=== PATIENT | female | born 1955 | race Caucasian/White ===

== ENCOUNTER → 2018-04-06 | Outpatient (CLI) | payer OTHER ==
--- NOTE | 2018-04-08 13:20 | MAM ---
EXAM DESCRIPTION: 3D Screening BILATERAL : Digital Mammography. CLINICAL HISTORY: 62 years Female ANNUAL SCREENING . No complaints. No personal history or family history of breast cancer. Childbirth. Postmenopausal. No HRT. Lifetime risk of developing breast cancer (Tyrer-Cuzick model)(%): 6.8. COMPARISON: 2-D digital screening bilateral study 05/19/2011.. TECHNIQUE: Bilateral CC and MLO projection full-field images, Digital tomosynthesis mammographic technique. Bilateral digital 2-D full-field MLO images. CAD not utilized. FINDINGS: The breast parenchymal density pattern is: Scattered areas of fibroglandular density. No skin thickening or nipple retraction. Bilateral solitary microcalcifications. Intramammary lymph node posterior upper right breast. No new focal, stellate mass or density, focal asymmetry , and no suspicious microcalcifications bilaterally. Stable mammograms compared to prior study. Taking into account, differences in mammographic technique. IMPRESSION: Benign exam. BIRAD CATEGORY: 2 BENIGN FINDINGS. RECOMMENDATIONS: FOLLOW UP: Routine digital bilateral screening, one year interval from March 2018. Written communication explaining the IMPRESSION and follow-up, will be mailed to the patient and referring health care provider. According to the [employer], yearly mammograms are recommended starting at age 40 and continuing as long as a woman is in good health. Any breast change noted on a breast self-exam should be reported promptly to the patient's healthcare provider. Breast MRI is recommended for women with an approximately 20-25% or greater lifetime risk of breast cancer, including women with a strong family history of breast or ovarian cancer and women who have been treated for Hodgkin's disease. A negative mammographic report should not delay tissue diagnosis in patients with significant clinical history or physical findings. Extremely dense breast tissue limits the sensitivity of digital mammography. Electronically signed by: Armani Billings MD 04/08/2018 1:19 PM CDT
== END ==
LOC: MAMMO 10:45
PROVIDERS: ATTEND Family Medicine
DX: Z12.31 Encounter for screening mammogram for malignant neoplasm of breast (principal)

== ENCOUNTER → 2018-09-02 | Outpatient (CLI) | payer OTHER ==
--- NOTE | 2018-09-04 15:01 | MRI ---
MRI right shoulder without contrast INDICATION: Shoulder pain rotator cuff tear TECHNIQUE: Noncontrast MR imaging right shoulder FINDINGS: Mild hypertrophic AC joint osteoarthrosis. Full-thickness retracted tear supraspinatus retracted to the mid humeral head level. Tendinopathy and low-grade partial tear infraspinatus. Severe subacromial and subdeltoid bursitis Mild diffuse labral degeneration. Mild edema and cystic change greater tuberosity. Grade 1-2 fatty marbling throughout the rotator cuff muscle bellies. Interstitial cyst within the myotendinous region infraspinatus related to interstitial partial tear distally. Tendinopathy and low-grade chronic partial tear subscapularis tendon. Indistinct intracapsular bicep with thinning of the extracapsular portion indicating chronic partial tear. IMPRESSION: Full-thickness retracted tear supraspinatus tendon Interstitial partial tear infraspinatus with interstitial cyst Mild tendinopathy and low-grade chronic partial tear subscapularis tendon Thinning of the long head bicep indicating chronic tendinosis and partial tear Severe subacromial and subdeltoid bursitis Mild AC joint osteoarthrosis. Electronically signed by: Tim Virgen MD 09/04/2018 2:57 PM CDT
== END ==
LOC: MRI 13:08
PROVIDERS: ATTEND Family Medicine
DX: M75.101 Unspecified rotator cuff tear or rupture of right shoulder, not specified as traumatic (principal); M19.011 Primary osteoarthritis, right shoulder; M75.51 Bursitis of right shoulder

== ENCOUNTER → 2018-10-03 | Outpatient (CLI) | payer OTHER | LOC: LAB.O 11:11 | PROVIDERS: ATTEND Orthopaedic Surgery | DX: Z01.818 Encounter for other preprocedural examination (principal) ==

== ENCOUNTER 2018-10-11 05:37 | Day surgery (SDC) | payer OTHER ==
--- NOTE | 2018-10-10 13:09 | HP ---
CHIEF COMPLAINT: Right shoulder pain. HISTORY OF PRESENT ILLNESS: Ms. Borges is a 62-year-old female with a history of pain in the right shoulder that has been present for a couple of months. She had no direct trauma at that time, but states she had done some heavy lifting recently. She has been having worsening stiffness. There has been no radiation and no neurologic symptoms. She has limitations secondary to that because it is her dominant side. She has had an MRI which does show tear of the rotator cuff. Because of the findings, she has requested operative intervention. After discussing the risks, benefits and alternatives to that, she has given informed consent. PAST SURGICAL HISTORY: None. MEDICATIONS: 1. Triamterene. 2. Lovastatin. ALLERGIES: NO KNOWN DRUG ALLERGIES. CODE STATUS: Full code. IMMUNIZATIONS: Up to date. FAMILY HISTORY: None pertinent to today's complaint. SOCIAL HISTORY: The patient does not use any illicit drugs. She does drink on occasion. REVIEW OF SYSTEMS: Negative except as indicated in the History of Present Illness. PHYSICAL EXAMINATION: VITAL SIGNS: Blood pressure 145/99. Pulse 79. Height 5'5". Weight 175 pounds. MENTAL STATUS: The patient is awake, alert, and is able to give a good history and participate in the physical. The patient is oriented to person, place and time. SKIN: Normal tone and turgor. MUSCULOSKELETAL: She has weakness in abduction secondary to pain. She has pain in the subacromial space. She has about 70 degrees of active abduction and pain prevents further movement. She has about 80 degrees of forward flexion. She has difficulty with extension beyond the plane of the body and has a negative belly press. She has full range of motion of elbow, wrists and digits. She has difficulty with passive range of motion in all planes secondary to discomfort. IMAGING: X-rays fail to demonstrate any bony abnormality. MRI was performed and does show tear of the rotator cuff. ASSESSMENT: 1. Rotator cuff tear. PLAN: The plan at this point is for rotator cuff repair. We have discussed the risks, benefits, and alternatives to that and the patient has given informed consent. #[id number] [facility]
[2018-10-11] MEDS ORDERED: LACTATED RINGERS 1,000 ML ONE (05:48)
[2018-10-11] MEDS ORDERED: SODIUM CHL 0.9% 100ML MINI-BAG 100 ML IVPB ONE (05:48)
[2018-10-11] MEDS ORDERED: ceFAZolin SODIUM 1 GM VIAL ONE (05:49)
[2018-10-11] MEDS ORDERED: fentaNYL CITRATE INJ 50 MCG/ML AMP ONE (06:23)
[2018-10-11] MEDS ORDERED: MIDAZOLAM INJ 2 MG/2 ML VIAL ONE (06:23)
[2018-10-11] MEDS ORDERED: ROCURONIUM BROMIDE 10 MG/ML VIAL ONE (06:24)
[2018-10-11] MEDS ORDERED: VANCOMYCIN HCL INJ 1,000 MG VIAL IVPB ONE (06:34)
[2018-10-11] MEDS ORDERED: BUPIVACAINE 0.5% 30 ML VIAL INJ ONE (06:34)
[2018-10-11] MEDS ORDERED: BUPIVACAINE LIPOSOME 13.3 MG/ML VIAL INJ ONE (06:34)
[2018-10-11] MEDS ORDERED: SUGAMMADEX SODIUM 200 MG/2 ML VIAL IV ONE (07:22)
[2018-10-11] MEDS ORDERED: ACETAMINOPHEN IV 1000MG 100 ML ONE (07:22)
[2018-10-11] MEDS: ceFAZolin SODIUM 1 GM VIAL ONE ×4 (07:46→09:15)
[2018-10-11] MEDS: VANCOMYCIN HCL INJ 1,000 MG VIAL IVPB ONE ×2 (07:52→09:15)
[2018-10-11] MEDS ORDERED: ELECTROLYTE-A 1,000 ML IVS ONE (08:44)
[2018-10-11] MEDS ORDERED: LACTATED RINGERS 1,000 ML IVS ONE (10:00)
[2018-10-11] MEDS ORDERED: DEXAMETHASONE INJ 10 MG/ML VIAL IV ONE (10:00)
[2018-10-11] MEDS ORDERED: KETOROLAC TROMETHAMINE INJ 30 MG/ML VIAL IV ONE (10:00)
[2018-10-11] MEDS ORDERED: PHENYLEPHRINE INJ 1ML 10 MG/ML VIAL IV ONE (10:00)
[2018-10-11] MEDS ORDERED: LIDOCAINE 1% 10 ML VIAL INJ ONE (10:00)
[2018-10-11] MEDS ORDERED: SODIUM CHLORIDE 0.9% 50 ML VIAL INJ ONE (10:00)
[2018-10-11] MEDS ORDERED: PROPOFOL 200 MG/20 ML VIAL IV ONE (10:00)
[2018-10-11] MEDS ORDERED: ePHEDrine SULF 50 MG/ML IV ONE (10:00)
[2018-10-11 11:27] VITALS: BP 130/78; TEMP 98.2; O2SAT 98
--- NOTE | 2018-10-13 09:16 | OP ---
DATE OF PROCEDURE: 10/11/18 PREOPERATIVE DIAGNOSIS: 1. Rotator cuff tear. POSTOPERATIVE DIAGNOSIS: 1. Rotator cuff tear. PROCEDURE: 1. Rotator cuff repair. SURGEON: Jeff Felder MD. PLODDER OPERATOR: Armani Velarde CST, SA-C. ANESTHESIA: General anesthesia. COMPLICATIONS: None. FINDINGS: Large retracted tear of the supraspinatus extending into the infraspinatus. INDICATION: Ms. Borges has a history of pain that has been going on for a while, but she also has a more remote history of discomfort. She has been having ongoing symptoms that have been refractory to conservative measures. Because of her symptoms, she requested operative intervention. After discussing the risks, benefits and alternatives to that, informed consent was obtained for rotator cuff repair. PROCEDURE: The patient was brought to the Operating Room and placed in the supine position. General anesthesia was induced and the patient was transitioned into the beach chair position. The arm and shoulder were then sterilely prepped and draped. After prepping and draping the shoulder, an incision was made at the lateral border of the acromion. Full thickness skin flaps were developed. Following that, the deltoid was split between the anterior and middle heads. A bursectomy and an acromioplasty were performed. Following that, the rotator cuff was identified. It was noted that she did have significant retraction of the deltoid. There was some very friable tissue at the tendon ends as well. The tendon edge was debrided. Following debridement of the tendon, bony trough was made. It was noted at the time that she had pretty osteoporotic bone. Four suture anchors were used to reapproximate the tendon after the tendon was mobilized, both intra and extraarticularly. Once the repair had been obtained, the arm was taken through a range of motion and the repair seemed to be stable without any undue tension. The wound was very thoroughly irrigated and the deltoid was reapproximated. Following reapproximation of the deltoid, the skin was closed with a combination of running and interrupted suture. Sterile dressings were placed. The patient was placed in a sling, awoken from anesthesia and taken to Recovery. POSTOPERATIVE PLAN: She will be in a sling without any range of motion for six weeks. Given the size and severity of her tear, I do not want to compromise that. In speaking with her , she was also scheduled to undergo bone scan, which she skipped. Her primary care physician had ordered that because of fear that she did have osteoporosis. I think it would be prudent for her go ahead and get that because of the additional findings at the time of surgery. We will see her in two days. I will go over the postoperative plan with her at that time. #[id number] [facility]
== END 2018-10-11 11:10 | disposition home or self-care (01) ==
LOC: AMB 05:37
PROVIDERS: ATTEND Orthopaedic Surgery
DX: M75.101 Unspecified rotator cuff tear or rupture of right shoulder, not specified as traumatic (principal); K21.9 Gastro-esophageal reflux disease without esophagitis; I10 Essential (primary) hypertension; E78.2 Mixed hyperlipidemia; E66.9 Obesity, unspecified; Z79.899 Other long term (current) drug therapy
CPT/HCPCS: 01630; 23420; 80307; A4216; J0690; J1100; J1885; J2250; J3010; J3370; J3490; J7050; J7120